=== PATIENT | female | born 1950 | race Caucasian/White ===

== ENCOUNTER → 2018-12-19 13:26 | Outpatient (BNVA) | payer MEDICARE, SELFPAY | PROVIDERS: Visit Provider Psychiatry & Neurology Neurology | DX: H53.8 Other visual disturbances (principal); H47.10 Unspecified papilledema; E11.9 Type 2 diabetes mellitus without complications; Z79.84 Long term (current) use of oral hypoglycemic drugs; I10 Essential (primary) hypertension | CPT/HCPCS: 99204 ==

== ENCOUNTER → 2019-01-29 12:34 | Outpatient (BNVA) | payer MEDICARE, SELFPAY | PROVIDERS: Visit Provider Psychiatry & Neurology Neurology | DX: H53.8 Other visual disturbances (principal); H47.10 Unspecified papilledema; E11.9 Type 2 diabetes mellitus without complications; I10 Essential (primary) hypertension; Z79.84 Long term (current) use of oral hypoglycemic drugs | CPT/HCPCS: 99214 ==

== ENCOUNTER 2021-09-26 06:27 | Day surgery (SDC) | payer OTHER, SELFPAY ==
--- NOTE | 2021-09-26 06:13 | ANES.PREOP_ITS ---
General Info Date of Service Date Performed: 09/26/21 Height: 5 ft 1 in Weight: 82 kg Body Mass Index (BMI): 34.1 Surgical Procedure: Operation Date: 09/26/21 07:40 Proposed Procedure Side Surgeon p Cataract Extraction with IOL Implant Left Fabian Anton MD Meds Allergies and Home Medications Allergies Allergy/AdvReac Type Severity Reaction Status Date / Time amoxicillin [From Augmentin] Allergy Unknown Swelling/Ed Verified 09/26/21 06:46 feroz codeine Allergy Unknown Swelling/Ed Verified 09/26/21 06:46 feroz Sulfa (Sulfonamide Allergy Unknown Swelling/Ed Verified 09/26/21 06:46 Antibiotics) feroz Home Medication Medication Instructions Recorded aspirin 81 mg tablet,delayed 81 mg PO DAILY 12/13/18 release (Adult Aspirin Regimen) atorvastatin 40 mg tablet (Lipitor) 10 mg PO DAILY 12/13/18 cholecalciferol (vitamin D3) 50 2,000 unit PO DAILY 12/13/18 mcg (2,000 unit) capsule chromium picolinate 200 mcg tablet 200 mcg PO DAILY 12/13/18 magnesium chloride 64 mg 64 mg PO DAILY 12/13/18 (magnesium chloride) tablet,delayed release vit A 300 mcg-C 200 mg-E 27 1 tab PO DAILY 12/13/18 mg-lutein 2 mg and minerals tablet (Ocuvite with Lutein) metformin 500 mg tablet 500 mg PO DAILY 12/19/18 ascorbate calcium (vitamin C) 500 1 gm PO DAILY 01/29/19 mg tablet vitamin B complex (B Complex 1 1 tab PO DAILY 01/29/19 tablet) clonidine HCl 0.1 mg tablet 0.1 mg PO QHS 09/22/21 metoprolol succinate 100 mg 100 mg PO DAILY 09/22/21 tablet,extended release 24 hr valsartan 320 1 tab PO DAILY 09/22/21 mg-hydrochlorothiazide 12.5 mg tablet icosapent ethyl 1 gram capsule 2 g PO BID 09/26/21 (Vascepa) Current Visit Medications: Current Medications Generic Name Dose Route Start Last Admin Trade Name Freq PRN Reason Stop Dose Admin Acetaminophen 1,000 mg 09/26/21 06:00 Acetaminophen 500 Mg Tab PO Q4H PRN PRN Miscellaneous Medication 0 ml 09/26/21 06:00 Prednisolone 1%, Moxifloxacin 0.5%, Nepafenac 0.1% 5ml Btl OS DIRECTED [facility] Miscellaneous Medication 0 ml 09/26/21 06:00 Tropicam./Phenyleph. 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, D89.89 Depression F32.9 Blurred vision, right eye H53.8 Papilledema Hypothyroidism E03.9 Medical History Medical History Chronic fatigue Cough variant asthma COVID-19 06/28 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, controlled Difficulty swallowing Family history of 5, 10-methylenetetrahydofolate deficiency PATIENT HAS THIS - NOT FAMILY Generalized hyperhidrosis History of metabolic syndrome Hypertension ALON (obstructive sleep apnea) Pure hyperglyceridemia Medical History Comments:: 1x 1976 reaction to anesthesia Surgical History Surgical History Hx of cholecystectomy (~1986) Hx of hysterectomy (~1989) Tobacco Smoking/Tobacco Use Status: Never Alcohol Alcohol Intake: never Substance Use Substance use: Never Substance use type: does not use Vital Signs and Lab Results Lab Results Blood Type / Crossmatch: No Data to Display Complete Blood Count: No Data to Display Complete Metabolic Panel: No Data to Display Liver Function Panel: No Data to Display Coagulation Panel: No Data to Display Cardiac Panel: No Data to Display Arterial Blood Gas: No Data to Display Venous Blood Gas: No Data to Display Pancreas Panel: No Data to Display Thyroid Panel: No Data to Display Infectious Disease: No Data to Display Blood Cultures: No Data to Display Toxicology Panel: No Data to Display Anesthesia Assessment and Plan Anesthesia History Personal History: No History of Anesthesia Complications Family History: No Family History of Anesthesia Complications and Other Exercise Tolerance Exercise Tolerance: Metabolic Equivalents>4 Cardiac & Pulmonary Exam Cardiac Exam: Normal S1/S2 Heart Sounds Pulmonary Exam: Clear Bilateral Breath Sounds Implantable Cardiac Device Does patient have a Pacemaker or an ICD?: No Airway Exam Known Difficult Airway: No Mallampati Class: 3 Mouth Opening: Normal (> 3cm) Thyromental Distance: Greater than 3 cm Neck Range of Motion: Full ROM Neck Circumference: Thick Teeth Condition: Normal Dentition ASA Classification ASA Score: ASA 2 Emergency Case?: No NPO Status NPO Status: NPO Clears >2 hours, Solids >8 hours Anesthesia Plan Resuscitation Status: Full Code Anesthesia Technique: MAC Anesthesia Airway Planned: Natural Airway Monitors Used: Standard Monitors Preoperative Comments:: 71 yo female for cataract removal. Sig PMHx: HTN (metoprolol, valsartan, HCTZ), depression, hypothyroid, DM (metformin), MTHFR, ALON. Previous cat mko
[2021-09-26 06:36] VITALS: BP 133/79; PULSE 57; RESP 18; TEMP 36.4; O2SAT 99
[2021-09-26] MEDS: Tropicam./Phenyleph. (1/2.5%) 5 ML BTL OS ×3 (06:58→07:14)
[2021-09-26 07:06] VITALS: BMI 34.1
[2021-09-26] MEDS: Balanced Salt Soln.-PLUS 500 ML BAG (07:59)
[2021-09-26] MEDS: Povidone-Iodine Ophth 30 ML BTL (08:00)
[2021-09-26] MEDS: Duovisc Viscoelastic System EACH 1 EACH (08:00)
[2021-09-26] MEDS: Lidocaine 2% Jelly 6 ML SYR (08:01)
[2021-09-26] MEDS: Tetracaine 0.5% 4 ML BTL OS (08:02)
--- NOTE | 2021-09-26 08:04 | W.PM.DSUDISC ---
Discharge Plan Disposition Patient Disposition: HOME Condition: Good Discharge Details Attending Provider: Fabian Anton Primary Care Provider: No,Local Home Meds and New Rx's Prescriptions: No Action vitamin B complex [B Complex 1] Tablet 1 tab PO DAILY ascorbate calcium (vitamin C) 500 mg tablet 1 gm PO DAILY aspirin [Adult Aspirin Regimen] 81 mg tablet,delayed release (DR/EC) 81 mg PO DAILY chromium picolinate 200 mcg tablet 200 mcg PO DAILY atorvastatin [Lipitor] 40 mg tablet 10 mg PO DAILY magnesium chloride 64 mg tablet,delayed release (DR/EC) 64 mg PO DAILY Ocuvite with Lutein 1,000 unit-200 mg-60 unit-2 mg tablet 1 tab PO DAILY cholecalciferol (vitamin D3) 2,000 unit capsule 2,000 unit PO DAILY metformin 500 mg tablet 500 mg PO DAILY metoprolol succinate 100 mg Tablet Extended Release 24 Hr 100 mg PO DAILY valsartan-hydrochlorothiazide 320-12.5 mg Tablet 1 tab PO DAILY clonidine HCl 0.1 mg Tablet 0.1 mg PO QHS icosapent ethyl [Vascepa] 1 gram Capsule 2 g PO BID Discharge Instructions Stand Alone Forms: Post-op Topical Cataract, Sasha Carnes (DSU) Discharge Orders Discharge Orders: Discharge Order (Routine); Ordered 09/26/21 Ordered By: Fabian Anton DS: Diagnosis Discharge Diagnosis (1) Nuclear sclerotic cataract of left eye: Status: Resolved (2) Posterior subcapsular age-related cataract of left eye: Status: Resolved
[2021-09-26 08:06] VITALS: BP 112/62; PULSE 55; RESP 16; TEMP 35.8; O2SAT 98
--- NOTE | 2021-09-26 08:08 | ROE_ITS ---
Date of service: 09/26/21 Time of Service: 08:08 Operative Note Operative Note DATE OF PROCEDURE: 09/26/21 PRE-OP DIAGNOSIS: Nuclear/posterior subcapsular cataract, left eye POST-OP DIAGNOSIS: same PROCEDURE: Cataract extraction using phacoemulsification with intraocular lens implant, left eye SURGEON: Fabian Anton ANESTHESIA TYPE: Local By Surgeon and MAC Refer to Anesthesia Record PATHOLOGY: none sent COMPLICATIONS: None Patient was transported to: same day Patient's condition: stable Implants: Max and Max / [employer] Tecnis [id number] Indications: Progressive decreased vision due to cataract, left eye Procedure Description: CATARACT SURGERY OPERATIVE REPORT PREOPERATIVE DIAGNOSIS: 1. Nuclear/posterior subcapsular cataract, left eye POSTOPERATIVE DIAGNOSIS: Same OPERATION: 1. Cataract extraction using phacoemulsification with posterior chamber intraocular lens implant, left eye. IOL: IOL Network Control Operators Supervisor/Model: Max & Max / DRE Tecnis [id number] IOL Power: + 19.0 diopters IOL Serial Number: [id number] Optic Diameter: 6.0 mm Haptic/Overall Diameter: 13.0 mm PHACO INFO: Slava Matrix Electronic Measuringurion Vision System with OZil and Active Fluidics Cumulative Dispersed Energy (CDE): 11.32 seconds SURGEON: Fabian Anton MD, FLORA ANESTHESIA: Monitored A [facility] Care (MAC), with local sub-tenon's anesthetic infiltration COMPLICATIONS: None SPECIMENS: None INDICATIONS FOR PROCEDURE: The patient is a 71-year-old lady who previously underwent cataract surgery in her right eye in 2020. She has now developed a symptomatic nuclear/posterior subcapsular cataract in the left eye and desires cataract surgery there and attempt to improve and maximize her vision. PROCEDURE: The correct surgical eye was identified and marked as the left eye and the pupil was dilated in the preoperative area using mydriatics and cycloplegics. The dilated pupil size was 6.0 mm. Oral sedation was administered in the form of an Imprimis MKO Melt (midazolam 3mg/ketamine 25mg/ondansetron 2mg). The patient was brought to the operating room where cardiopulmonary monitoring was instituted and surgical time-out was performed, confirming the correct operative eye and IOL power. Topical anesthesia was administered and ophthalmic povidone-iodine 5% was instilled into the conjunctival fornices. Lidocaine gel was applied to the cornea and the pushpa-ocular area was prepped with Betadine 10% solution and draped in the usual sterile fashion for intraocular surgery, including an aperture drape. A Tegaderm transparent film dressing was cut in half and used to cover the lashes and lid margins. Care was taken to sequester the lashes and lid margins under the Tegaderm dressing. A lid speculum was placed between the lids of the operative eye and the Slava LuxOR Revalia operating microscope was maneuvered into position. Alejandro scissors were then used to make a conjunctival buttonhole approximately 6mm posterior to the limbus in the inferonasal quadrant. Blunt dissection was carried out to expose bare sclera, and a blunt-tipped sub-tenon?s anesthesia cannula was introduced and passed posteriorly along the globe where non- preserved plain lidocaine was injected into posterior sub-Tenon?s space. A sideport knife was used to make a paracentesis port superiorly/superiortemporally. Intraocular phenylephrine/lidocaine was injected int the anterior chamber.. The anterior chamber was filled with viscoelastic. A 2.4mm keratome knife was used to construct a 2-plane near-clear corneal tunnel extending 2.0mm into clear cornea temporally. A flap was raised on the anterior capsule and capsulorhexis forceps were used to complete a continuous curvilinear capsulorhexis of 4.8 mm. Balanced salt solution was then used to perform cortical cleaving hydrodissection and nuclear hydrodelineation until the lens could be freely rotated within the capsular bag. The lens nucleus was then disassembled and removed within the capsular bag and iris plane using phacoemulsification. Residual cortical material was removed using the 45-degree angled silicone I/A tip with 0.3mm port. The posterior capsule was carefully polished to remove as much residual lens epithelial cells as safely possible. The capsular bag was then inflated and the anterior chamber deepened with viscoelastic. The lens implant described above was inserted into the capsular bag using the DRE [place] Injector. A Kuglen hook was used to dial the IOL into position. Residual viscoelastic was then removed first from posterior to the IOL, then from the anterior chamber using the I/A handpiece. The lens implant was noted to center nicely within the capsular bag. The incisions were stromally hydrated, and the anterior chamber was reformed using BSS. Then 0.5cc of moxifloxacin 1.0mg/ml were injected into the capsular bag and anterior chamber. The incisions were checked with a Weck spear and found to be secure. Several drops of ophthalmic povidone-iodine 5% were then applied to the eye followed by two drops of Imprimis combination prednisolone/moxifloxacin/nepafenac solution. The drapes were removed and a clear plastic protective eye shield was placed over the eye. The patient was then returned to Same Day Surgery in stable condition.
--- NOTE | 2021-09-26 08:13 | W.ANESPOSTOP ---
Postoperative Evaluation Date, Time and Location Date Performed: 09/26/21 Time Performed: 08:13 Patient Location: Day Surgery Unit Vital Signs Most Recent Imported Vital Signs: Most Recent Vital Signs Temp Pulse Resp BP Pulse Ox 35.8 C L 55 L 16 112/62 98 09/26/21 08:06 09/26/21 08:06 09/26/21 08:06 09/26/21 08:06 09/26/21 08:06 Pain Score Most Recent Pain Score: Most Recent Pain Score Pain Level 0 09/26/21 08:06 Assessment Mental Status: Awake (Alert & Oriented to Patient Baseline) Airway and Respiratory Function: Patent airway with normal (patient baseline) respiratory exam Cardiovascular Function: Hemodynamically Stable Hydration Status: Adequately Hydrated Nausea & Vomiting: No Nausea or Vomiting Pain: Pt. Denies Any Pain Peripheral Nerve Block: Patient did not receive a nerve block
[2021-09-26 08:33] VITALS: BP 109/65; PULSE 53; RESP 16; TEMP 36.3; O2SAT 100
== END 2021-09-26 08:37 | disposition home or self-care (01) ==
PROVIDERS: Visit Provider Ophthalmology
PROC: (CPT 66984; principal; 2021-09-26 07:30)
DX: H25.042 Posterior subcapsular polar age-related cataract, left eye (principal); E11.9 Type 2 diabetes mellitus without complications; G47.33 Obstructive sleep apnea (adult) (pediatric); J45.991 Cough variant asthma
CPT/HCPCS: 66984; V2632